=== PATIENT | male | born 1980 ===

== ENCOUNTER 2019-11-11 17:29 | Emergency (ER) | payer OTHER ==
[2019-11-11] MEDS ORDERED: DIPHTH,PERTUSS(ACELL),TET 0.5 ML DISP.SYRIN IM ONE ×2 (17:45→18:56)
--- NOTE | 2019-11-11 17:51 | PDOC ---
Rapid Medical Evaluation Time Seen by Provider: 11/11/19 17:38 Medical Evaluation: 11/11/19 17:48 CC: fell about 5 feet down the steps after slipping. hit face and rt side of body. No loc. No ac daily use. headache + nausea Exam: noted edema to rt frontal bone with tenderness, abrasion to rt elbow/forearm, FROM of RT arm + noted ecchymosis to rt quadracep Discharge Disposition - Diagnosis Injury - Referrals - Patient Instructions - Post Discharge Activity
[2019-11-11 18:04] VITALS: BP 133/87; PULSE 61; TEMP 98.1; BMI 29.7
--- NOTE | 2019-11-11 18:47 | PDOC ---
History of Present Illness - General History Source: Patient Exam Limitations: No Limitations - History of Present Illness Initial Comments: 11/11/19 18:44 38-year-old male no significant past medical history of presenting the ED after falling down 5 steps striking his forehead on the ground without loss of consciousness. Patient denies headache dizziness nausea vomiting changes in vision. Patient is also complaining of right elbow pain but has been able to use the elbow without difficulty. Patient states fall happened yesterday afternoon did not seek medical attention at that time because he felt that he was okay. Patient took ibuprofen with relief of symptoms. Pt otherwise denies: fevers, chills, syncope, lightheadedness, neck pain, chest pain, shortness of breath, palpitations, back pain, abdominal pain, nausea, vomiting, diarrhea, con stipation. <Yoel Beltran - Last Filed: 11/11/19 19:36> <Bola Kaufman - Last Filed: 11/11/19 20:31> - General Chief Complaint: Injury Stated Complaint: FALL Time Seen by Provider: 11/11/19 17:38 Past History - Psycho-Social/Smoking History Smoking History: Never smoked Information on smoking cessation initiated: No - Substance Abuse Hx (Audit-C & DAST Scrn) How often the patient has a drink containing alcohol: Never Score: In Men: 4 or > Positive; In Women: 3 or > Positive: 0 Screen Result (Pos requires Nsg. Audit-10AR): Negative In the last yr the pt used illegal drug/Rx for NonMed reason: No Score: Yes response is considered Positive: 0 Screen Result (Positive result requires Nsg. DAST-10): Negative <Yoel Beltran - Last Filed: 11/11/19 19:36> <Bola Kaufman - Last Filed: 11/11/19 20:31> - Medical History Allergies/Adverse Reactions: Allergies Allergy/AdvReac Type Severity Reaction Status Date / Time Penicillins Allergy Verified 11/11/19 18:19 *Physical Exam - Vital Signs Last Vital Signs Temp Pulse Resp BP Pulse Ox 98.1 F 61 17 133/87 99 11/11/19 17:59 11/11/19 17:59 11/11/19 17:59 11/11/19 17:59 11/11/19 17:59 - Physical Exam 09/02/20 18:45 Gen: AAOx 3, no acute distress, comfortable, no signs of respiratory distress HENT: normocephalic with contusion to R frontal scalp and ecchymosis. Nasal mucosa without erythema. Oropharynx without erythema or exudates. Mucous membranes moist. EYES: PERRL, EOM intact no signs of intrapment, ttp over zygomatic arch, conjunctiva pink NECK: supple; trachea midline; no JVD, no lymphadenopathy, or thyromegaly CV: RRR no murmurs, gallops, or rubs. CHEST: CTA b/l no wheezing, rales or rhonchi ABD: +BS/ND. no TTP; soft, no rebound, no guarding EXTREMITY: no cyanosis or erythema. 2+ dorsalis pedis, posterior tibial, and radial pulse. No pedal edema; no calf swelling or tenderness SKIN: no rash, warm and dry, no diaphoresis HEME: no purpura or ecchymosis NEURO: normal speech, CN II-XII intact, sensation intact, normal gait, no cerebellar deficits MS: 5/5 strength in all extremities, FROM intact in all extremities. <Yoel Beltran - Last Filed: 11/11/19 19:36> - Vital Signs Last Vital Signs Temp Pulse Resp BP Pulse Ox 98.1 F 61 17 133/87 99 11/11/19 17:59 11/11/19 17:59 11/11/19 17:59 11/11/19 17:59 11/11/19 17:59 <Bola Kaufman - Last Filed: 11/11/19 20:31> ED Treatment Course - Medications Given in the ED: ED Medications Discontinued Medications Generic Name Dose Route Start Last Admin Trade Name Freq PRN Reason Stop Dose Admin Diphtheria/Tetanus/Acell Pertussis 0.5 ml 11/11/19 17:45 11/11/19 19:26 Boostrix - IM 11/11/19 17:46 0.5 ml .ONCE ONE Administration <Bola Kaufman - Last Filed: 11/11/19 20:31> Medical Decision Making - Medical Decision Making 11/11/19 18:47 38-year-old male status post fall Vital signs stable Will obtain CT head and facial bones Will reassess based on results Pt signed out to Peter Kaufman pending CT scan <DevinYoel - Last Filed: 11/11/19 19:36> - Medical Decision Making 11/11/19 20:29 CAT scan results reviewed with the patient I have reviewed the pathophysiology with the patient. They are in agreement with the treatment plan all questions were answered to their satisfaction. Understanding for follow-up without fail was also conveyed to the patient. Again they are in agreement. <Bola Kaufman - Last Filed: 11/11/19 20:31> Discharge <DevinYoel - Last Filed: 11/11/19 19:36> - Discharge Information Problems reviewed: Yes - Admission No <Bola Kaufman - Last Filed: 11/11/19 20:31> - Discharge Information Clinical Impression/Diagnosis: Injury, Concussion Condition: Stable Disposition: HOME - Follow up/Referral Referrals: Endy Childress MD [Staff Physician] - - Patient Discharge Instructions Additional Instructions: Tylenol and Motrin for pain. Without fail follow-up with neurology in 1 to 2 days for further evaluation and treatment options. No strenuous activity until cleared by neurology.
== END 2019-11-11 20:46 | disposition home or self-care (01) ==
LOC: MERGE 17:29 → JERFT 17:29 → JER 17:29 → JERFT 20:46
PROC: 3E0234Z Introduction of Serum, Toxoid and Vaccine into Muscle, Percutaneous Approach (ICD-10-PCS; principal; 2019-11-11)
DX: S09.90XA Unspecified injury of head, initial encounter (principal); S06.0X0A Concussion without loss of consciousness, initial encounter
CPT/HCPCS: 70450-TC; 70486-TC; 90715; 99284-25